=== PATIENT | female | born 1990 | race Caucasian/White ===

== ENCOUNTER 2019-03-09 11:08 | Inpatient (IN) | payer MEDICAID ==
[~2019-03-09] VITALS: Ht 149.9 cm; Wt 70.3 kg
[2019-03-09 11:08] VITALS: BP_SYST 127
--- NOTE | 2019-03-09 11:08 | NUR ---
BROUGHT IMMEDIATELY BACK TO BED #5 AND TRIAGED. REPORT GIVEN TO JULIÁN
--- NOTE | 2019-03-09 11:11 | NUR ---
Pt AAOx4 ambulated into ED referred from urgent care for 3/10 chest pain, palpitations, weakness, and dizzines. Pt states EKG done at urgent care was abnormal. Denies n/v/d/dysuria/sob. No other injuries/complaints per pt/noted.
--- NOTE | 2019-03-09 11:17 | NUR ---
DR JARA AT BEDSIDE FOR EVALUATION
[2019-03-09] MEDS ORDERED: DIGOXIN 0.5 MG/2 ML AMP IVP ONE (11:30)
[2019-03-09] MEDS ORDERED: ASPIRIN 325 MG TABLET PO ONE (11:30)
[2019-03-09 11:51] LABS: BASOPHILS % (AUTO) 0.4 % (0.0-2.0); EOSINOPHILS # (AUTO) 0.1 K/uL (0.0-0.4); EOSINOPHILS % (AUTO) 0.6 % (0.0-4.0); HEMOGLOBIN 13.5 g/dL (12.0-16.0); LYMPHOCYTES # (AUTO) 2.6 K/uL (1.0-5.5); LYMPHOCYTES % (AUTO) 27.9 % (20.5-51.5); MEAN CORPUSCULAR HEMOGLOBIN 32 pg (27-31); MEAN CORPUSCULAR HGB CONC 34 % (32-36); MEAN CORPUSCULAR VOLUME 94 fL (79.0-98.0); MONOCYTES # (AUTO) 0.6 K/uL (0.0-1.0); MONOCYTES % (AUTO) 6.8 % (1.7-9.3); NEUTROPHILS # (AUTO) 6.1 K/uL (1.8-7.7); NEUTROPHILS % (AUTO) 64.3 % (40.0-70.0); PLATELET COUNT (AUTO) 188 K/uL (130-430); RED BLOOD CELL COUNT(AUTO) 4.24 MIL/uL (4.2-6.2); RED CELL DISTRIBUTION WIDTH 12.9 % (9.0-15.0); WHITE BLOOD COUNT (AUTO) 9.5 K/uL (4.8-10.8)
[2019-03-09 11:58] LABS: ANION GAP 11 (5-15); CALCIUM 8.7 mg/dL (8.4-11.0); CHLORIDE 106 mmol/L (98-107); CREATININE 1.12 mg/dL (0.55-1.30); GLUCOSE 94 mg/dL (70-99); SODIUM SERUM 139 mmol/L (136-145); UREA NITROGEN, BLOOD 16 mg/dL (8-21)
[2019-03-09 12:01] LABS: GFR AFRICAN AMERICAN 75 mL/min (>90); PROTHROMBIN TIME 10.4 SECS (9.5-12.5)
[2019-03-09 12:13] LABS: ALANINE AMINOTRANSFERASE 31 U/L (12-78); ALBUMIN 3.5 g/dL (3.4-4.8); ASPARTATE AMINOTRANSFERASE 21 U/L (10-37); FREE T4 (FREE THYROXINE) 1.2 ng/dl (0.8-1.5); THYROID STIMULATING HORMONE 3.69 uIu/mL (0.36-3.74); TOTAL BILIRUBIN 0.9 mg/dL (0.0-1.0)
[2019-03-09 12:19] LABS: ALCOHOL, BLOOD < 3 mg/dL (<10)
[2019-03-09] MEDS ORDERED: MAGNESIUM SULFATE 4 GM in D5W 250 ML IV ONE (12:30)
[2019-03-09] MEDS ORDERED: MAGNESIUM SULFATE 1 GM/2 ML VIAL ONE (12:41)
--- NOTE | 2019-03-09 12:55 | NUR ---
Medication reconciliation completed with information provided by PATIENT. Any prior medication reconciliation on file was reviewed and corrected.
--- NOTE | 2019-03-09 12:59 | NUR ---
SPOKE TO PATIENT ABOUT END OF LIFE CARE. PATIENT STATES SHE IS FULL CODE.
--- NOTE | 2019-03-09 13:05 | NUR ---
Patient will be admitted to care of DR HARTLEY. Admitted to TELE unit. Will go to room 107A. Belongings list completed. Summary report printed. Report will be given at bedside.
[2019-03-09 13:24] LABS: BILIRUBIN,URINE NEGATIVE (NEGATIVE); BLOOD, URINE NEGATIVE (NEGATIVE); CLARITY/URINE CLEAR (CLEAR); COLOR,URINE YELLOW (YELLOW); GLUCOSE,URINE NEGATIVE (NEGATIVE); KETONES,URINE NEGATIVE (NEGATIVE); LEUKOCYTE ESTERASE ,URINE 1+ (NEGATIVE); NITRITE, URINE NEGATIVE (NEGATIVE); PH,URINE 5.5 (5.0-8.0); PROTEIN URINE NEGATIVE (NEGATIVE); UROBILINOGEN,URINE 0.2 (0.2-1.0)
[2019-03-09 13:26] LABS: BARBITURATE, URINE NEGATIVE (NEG <=200); BENZODIAZEPINE, URINE NEGATIVE (NEG <=150); CANNABINOID, URINE NEGATIVE (NEG <=50); COCAINE, URINE NEGATIVE (NEG <=150); METHAMPHETAMINES SCREEN,URINE NEGATIVE (NEG <=500); OPIATE, URINE NEGATIVE (NEG <=100); URINE AMPHETAMINE NEGATIVE (NEG <=500); URINE METHADONE NEGATIVE (NEG <=200)
[2019-03-09 13:27] LABS: PHENCYCLIDINE SCREEN,URINE NEGATIVE (NEG <=25); UR TRICYCLIC ANTIDEPRESSANTS NEGATIVE (NEG <=300); URINE OXYCODONE SCREEN NEGATIVE (NEG <=100); URINE PROPOXYPHENE SCREEN NEGATIVE (NEG <=300)
[2019-03-09 13:30] LABS: BACTERIA,URINE MODERATE /HPF (None Seen); MUCUS,URINE 1+ /LPF (None Seen); RBC,URINE 0-3 /HPF (0-3)
--- NOTE | 2019-03-09 13:33 | NUR ---
LAB AT BEDSIDE DRAWING BLOOD.
--- NOTE | 2019-03-09 13:40 | NUR ---
Transfer to TELE via ACLS protocol. Licensed nurse present. IV present no signs or symptoms of infiltration.
--- NOTE | 2019-03-09 13:41 | NUR ---
ADMISSION NOTE Received patient from ER via gurney. Patient admitted with diagnosis of new onset AFIB. Patient is awake, alert, oriented X 4. Patient oriented to hospital room, call light, toileting, pain management and safety-teach back done. Patient informed that Dennise will be RN and that their room number is 107B. Personal belongings checked and Belongings List documented. Call light within reach.
[2019-03-09 13:45] VITALS: BP_SYST 115
--- NOTE | 2019-03-09 13:45 | NUR ---
REPORT GIVEN TO LUIS JOHNSON ON TELE AT BEDSIDE.
--- NOTE | 2019-03-09 13:45 | NUR ---
Note Pt came from ED - pt ambulated to bed from [facility] with steady gait. Tele unit applied and IV in right AC intact and patent. Pt oriented to room and nursing routines and procedures. Pt oriented to call light and questions/concerns were answered at this time.
--- NOTE | 2019-03-09 13:48 | NUR ---
CONSULTATION PAGED REASON FOR CONSULTATION:NEW ONSET A-FIB WAS CONSULT CALLED?Y PERSON WHO WAS NOTIFIED:KEV CONSULTING PHYSICIAN:RICA WINCHESTER AGRICULTURAL AND FORESTRY SUPERVISOR SPECIALTY:CARDIO AGRICULTURAL AND FORESTRY SUPERVISOR PHONE NUMBER:[phone] [facility]IC[facility]
--- NOTE | 2019-03-09 13:50 | NUR ---
Note Report given to Teresa JOHNSON for continuation of care.
--- NOTE | 2019-03-09 13:50 | NUR ---
NOTE PATIENT AWAKE IN BED. A/OX4. ABLE TO MAKE NEEDS KNOWN. DENIES ANY PAIN. ORIENTED TO ROOM AND BED. ROOM AIR. NO ACUTE DISTRESS. NO SOB. RESPIRATION EVEN AND UNLABORED. SKIN WARM AND DRY TO TOUCH. IV INTACT AND PATENT; NO REDNESS/INFILTRATION NOTED. DISCUSSED PLAN OF CARE WITH PATIENT. BED IN LOW AND LOCKED POSITION. SIDERAIL UPX2. ALL NEEDS MET. CALL LIGHT IN REACH. CONT TO MONITOR
[2019-03-09 13:55] VITALS: BP_SYST 115
[2019-03-09] MEDS ORDERED: POTASSIUM CHLORIDE 20 MEQ TAB.PRT.SR PO PRN (14:00)
[2019-03-09] MEDS ORDERED: LORazepam 2 MG/ML VIAL IVP PRN (14:00)
[2019-03-09] MEDS ORDERED: ONDANSETRON HCL 4 MG/2 ML VIAL IVP PRN (14:00)
[2019-03-09] MEDS ORDERED: MAGNESIUM SULFATE 50 ML IV PRN (14:00)
[2019-03-09] MEDS ORDERED: MORPHINE 2 MG/ML INJ. SYRINGE IVP PRN (14:00)
[2019-03-09] MEDS ORDERED: MUPIROCIN 2% TOPICAL OINTMENT 22 GM NS PRN (14:00)
[2019-03-09] MEDS ORDERED: ZOLPIDEM TARTRATE 5 MG TABLET PO PRN (14:00)
[2019-03-09] MEDS ORDERED: DOCUSATE SODIUM 100 MG CAPSULE PO PRN (14:00)
[2019-03-09] MEDS: cefTRIAXone 1 GM in D5W 50 ML IV SCH (15:11)
[2019-03-09] MEDS: NACL 0.9% 1,000 ML IV SCH (15:11)
--- NOTE | 2019-03-09 15:15 | NUR ---
ATB/IVF ADMINISTERED IV ROCEPHIN AND IVF NS@90CC/HR ORDERED; OCTAVIA WELL WITH NO S/SX ASE NOTED. ALL NEEDS MET. CALL LIGHT IN REACH. CONT TO MONITOR
[2019-03-09 16:00] VITALS: BP_SYST 121
--- NOTE | 2019-03-09 17:00 | NUR ---
NOTE ROUNDS. PATIENT SITTING UP IN BED WATCHING TV. VS STABLE. DENIES ANY PAIN. ALL NEEDS MET. CALL LIGHT IN REACH. CONT TO MONITOR
--- NOTE | 2019-03-09 18:15 | NUR ---
SEEN AND EXAMINED BY AT BEDSIDE
--- NOTE | 2019-03-09 18:49 | NUR ---
CLOSING NOTE PATIENT SITTING UP IN BED WATCHING TV. STABLE. DENIES ANY PAIN. NO ACUTE DISTRESS. NO SOB. RESPIRATION EVEN AND UNLABORED. SKIN WARM AND DRY TO TOUCH. IV INTACT AND PATENT WITH NO REDNESS/INFILTRATION NOTED; OCTAVIA IVF ORDERED. BED IN LOW AND LOCKED POSITION. SIDERAIL UPX2. CALL LIGHT IN REACH. ALL NEEDS MET. CONT TO MONITOR. WILL ENDORSE TO ONCOMING SHIFT
--- NOTE | 2019-03-09 19:07 | NUR ---
Opening Note Received patient awake, AOx4, resting in bed, watching t.v. No sign of distress noted. She finished her meal, ate 80% of dinner. IVF infusing at 90 ml/hr via IV on RAC. Bed is locked to lowest position, refused bed alarm - states ambulates steady. Was instructed on used of call light and demonstrated use. Updated board and reviewed plan of care.
[2019-03-09] MEDS ORDERED: AMIODARONE HCL 200 MG TABLET PO ONE (19:45)
[2019-03-09 20:00] VITALS: BP_SYST 114
[2019-03-09] MEDS: ACETAMINOPHEN 325 MG TABLET PO PRN (20:48)
--- NOTE | 2019-03-09 20:56 | NUR ---
Medications Due medication, Amiodarone given as ordered. Patient reporting a headache and was given Tylenol as ordered for headache. Educated on side effects and she verbalized understanding. She requested an extra blanket and it was provided. No further needs. Will monitor.
[2019-03-09] MEDS: MORPHINE 2 MG/ML INJ. SYRINGE IVP PRN (23:55)
--- NOTE | 2019-03-10 00:08 | NUR ---
C/O Chest pain Patient reporting chest pain 4/10; administered Morphine 1mg as ordered for moderate pain. Educated on side effects, she verbalized understanding.
[2019-03-10 00:51] VITALS: BP_SYST 110
[2019-03-10] MEDS: ACETAMINOPHEN 325 MG TABLET PO PRN ×2 (02:11→13:19)
--- NOTE | 2019-03-10 02:11 | NUR ---
c/o Headache Patient reported headache and administered Tylenol for headache as ordered. Will monitor.
[2019-03-10] MEDS: NACL 0.9% 1,000 ML IV SCH ×2 (02:12→13:18)
--- NOTE | 2019-03-10 02:12 | NUR ---
IVF IVF fluid empty; replaced with new bag. Infusing as ordered- 90ml/hr, patient tolerating. Will monitor.
--- NOTE | 2019-03-10 03:20 | NUR ---
Rounds Patient resting, with door closed and lights out. Eyes closed and easily aroused. She reports headache is gone and denies chest pain, denies SOB. Will continue to monitor.
[2019-03-10 05:20] VITALS: BP_SYST 113
[2019-03-10] MEDS: AMIODARONE HCL 200 MG TABLET PO SCH ×3 (05:29→22:05)
--- NOTE | 2019-03-10 05:32 | NUR ---
EKG I accompanied RT at bedside for EKG. Patient cooperative.
--- NOTE | 2019-03-10 05:34 | NUR ---
Medication Due medication, Amiodarone given as ordered. B/P 113/71, HR 67. Presently denies pain or SOB.
[2019-03-10 06:04] LABS: BASOPHILS % (AUTO) 0.4 % (0.0-2.0); EOSINOPHILS # (AUTO) 0.1 K/uL (0.0-0.4); EOSINOPHILS % (AUTO) 1.4 % (0.0-4.0); HEMATOCRIT 40.1 % (36-48); HEMOGLOBIN 13.2 g/dL (12.0-16.0); LYMPHOCYTES # (AUTO) 3.8 K/uL (1.0-5.5); LYMPHOCYTES % (AUTO) 46.7 % (20.5-51.5); MEAN CORPUSCULAR HEMOGLOBIN 31 pg (27-31); MEAN CORPUSCULAR HGB CONC 33 % (32-36); MEAN CORPUSCULAR VOLUME 95 fL (79.0-98.0); MONOCYTES # (AUTO) 0.6 K/uL (0.0-1.0); MONOCYTES % (AUTO) 7.2 % (1.7-9.3); NEUTROPHILS # (AUTO) 3.6 K/uL (1.8-7.7); NEUTROPHILS % (AUTO) 44.3 % (40.0-70.0); PLATELET COUNT (AUTO) 197 K/uL (130-430); RED BLOOD CELL COUNT(AUTO) 4.24 MIL/uL (4.2-6.2); RED CELL DISTRIBUTION WIDTH 13.4 % (9.0-15.0); WHITE BLOOD COUNT (AUTO) 8.1 K/uL (4.8-10.8)
[2019-03-10 06:39] LABS: CALCIUM 7.7 mg/dL (8.4-11.0); CREATININE 1.02 mg/dL (0.55-1.30); POTASSIUM 4.3 mmol/L (3.5-5.1); TOTAL BILIRUBIN 0.8 mg/dL (0.0-1.0)
--- NOTE | 2019-03-10 06:51 | NUR ---
CLOSING NOTE Patient resting in comfortable position, no sign/symptom of distress. Non-labored breathing on room air. Presently denies chest pain or headache. Needs met throughout shift, will endorse care to oncoming nurse.
--- NOTE | 2019-03-10 07:30 | NUR ---
AM rounds: Oriented x4. Claims minimal substernal constant non radiating pain. No shortness of breath, no palpitations. 12 lead EKG was done this am. Call light within reach. IV fluids of normal saline at 90 cc/hr on the right AC gauge 18, intact, patent.
[2019-03-10 07:54] VITALS: BP_SYST 109
[2019-03-10] MEDS: ENOXAPARIN SODIUM 40 MG/0.4 ML SYRINGE SUBCUT SCH (09:09)
[2019-03-10] MEDS: cefTRIAXone 1 GM in D5W 50 ML IV SCH (09:09)
--- NOTE | 2019-03-10 09:10 | NUR ---
MD rounds; Seen by Dr. Urban and Dr. Pacheco, patient is aware of her plan of care and verbalized understanding.
[2019-03-10 12:31] VITALS: BP_SYST 96
--- NOTE | 2019-03-10 13:30 | NUR ---
Medication: Medicated with tylenol for headache. Denies chest pain.
--- NOTE | 2019-03-10 14:23 | NUR ---
Rounds: Patient is asleep. Medical rep will call back later.
[2019-03-10 16:18] VITALS: BP_SYST 109
--- NOTE | 2019-03-10 18:43 | NUR ---
end of shift: Needs attended, no change in assessment. Denies chest pain.
[2019-03-10 19:20] VITALS: BP_SYST 102
--- NOTE | 2019-03-10 19:20 | NUR ---
INITIAL NOTES; PT IS ALERT AND ORIENTED C/O MILD CHEST DISCOMFORT ; VITALS ARE STABLE ; ASSESSMENT DONE ; WILL CONTINUE TO MONITOR PT ; BED IN LOW AND LOCKS POSITION , CALL BR[place]FORD IN REACH ; PT REFUSED BED ALARM ; MOTHER AT BEDSIDE . WILL MONITOR FOR CHEST PAIN
--- NOTE | 2019-03-10 20:00 | NUR ---
RN NOTES; PT DENIED ANY CHEST DISCOMFORT OR SOB AT THIS TIME , PT IS AFLUTTER ON THE MONITOR ; VITALS ARE STABLE ;WILL CONTINUE TO MONITOR PT .
[2019-03-10] MEDS: MORPHINE 2 MG/ML INJ. SYRINGE IVP PRN (22:08)
--- NOTE | 2019-03-10 22:10 | NUR ---
MEDICATION; DUE MEDS GIVEN ,PT C/O PAIN TO HER R HEAD AND RADIATING TO HER JAW ; MEDICATED WITH MORPHINE 1 MG PER ORDER ; PT STATED SHE IS CONSTIPATED ; MEDICATED WITH COLACE PER ORDER . WILL CONTINUE TO MONITOR PT .
--- NOTE | 2019-03-11 00:10 | NUR ---
RN NOTES: PT IS SLEEPING , COMFORTABLE , NOT IN ANY ACUTE DISTRESS; WILL CONTINUE TO MONITOR PT
[2019-03-11] MEDS: NACL 0.9% 1,000 ML IV SCH (00:23)
[2019-03-11 01:00] VITALS: BP_SYST 107
--- NOTE | 2019-03-11 02:00 | NUR ---
RN ROUNDS; PT IS SLEEPING , RESPIRATION IS EVEN AND NON LABORED ; IV FLUID IS INFUSING WELL ;WILL CONTINUE TO MONITOR PT .
--- NOTE | 2019-03-11 04:20 | NUR ---
RN ROUNDS; PT IS SLEEPING , RESPIRATION IS EVEN AND NON LABORED ; IV FLUID IS INFUSING WELL ;NOT IN ANY ACUTE DISTRESS;WILL CONTINUE TO MONITOR PT .
[2019-03-11 05:34] VITALS: BP_SYST 108
[2019-03-11] MEDS: AMIODARONE HCL 200 MG TABLET PO SCH (05:36)
--- NOTE | 2019-03-11 05:37 | NUR ---
MEDICATION: DUE MEDICATION GIVEN PER ORDER , PT IS COMFORTABLE ; PT STATED SHE STILL HAS 1/10 PAIN TO HER R HEAD .PAIN IS TOLERABLE PER PT . WILL CONTINUE TO MONITOR PT .
--- NOTE | 2019-03-11 07:03 | NUR ---
CLOSING NOTES; PT IS COMFORTABLE , SLEEPING , RESPIRATION IS EVEN AND NON LABORED ;NO C/O ANY CHEST PAIN ; PT IS STILL A FLUTTER ON THE MONITOR ;IV FLUID IS INFUSING WELL , NO S/S OF ANY INFILTRATION NOTED ; ALL NEEDS MET ; WILL CONTINUE TO MONITOR AND WILL ENDORSE TO NEXT SHIFT NURSE .
[2019-03-11 08:00] VITALS: BP_SYST 116
--- NOTE | 2019-03-11 08:00 | NUR ---
ASSUMPTION OF CARE: RECEIVED PT A/A/OX4, DX: INADEQUATE PERFUSION R/T NEW ONSET A-FIB, VSS, A-FLUTTER ON TELE MONITOR, NO DISTRESS NOTED AT THIS TIME, PULSES PALPABLE, SKIN WARM, DRY, TO TOUCH, IV SITE INTACT, PATENT, NO REDNESS OR SWELLING, ORIENTED TO UNIT, CALL LIGHT PLACED WITHIN REACH, WILL CON'T TO MONITOR AND ASSESS.
[2019-03-11] MEDS: cefTRIAXone 1 GM in D5W 50 ML IV SCH (08:37)
[2019-03-11] MEDS: ENOXAPARIN SODIUM 40 MG/0.4 ML SYRINGE SUBCUT SCH (08:38)
--- NOTE | 2019-03-11 09:00 | NUR ---
MEDICAL/SURGERY REGISTERED NURSE: MORNING MEDS GIVEN, PER ORDERED BY Michelle, TOLERATED WELL, WILL CON'T WITH PLAN OF CARE.
--- NOTE | 2019-03-11 09:00 | NUR ---
VISIT: AT BEDSIDE FOR ASSESSMENT OF PT, DISCUSSED POC, PT VERBALIZES UNDERSTANDING, NEW ORDERS GIVEN, WILL CON'T TO MONITOR AND ASSESS.
[2019-03-11] MEDS ORDERED: RIVAROXABAN 10 MG TABLET PO STA (09:25)
--- NOTE | 2019-03-11 09:30 | NUR ---
VISIT: AT BEDSIDE FOR ASSESSMENT OF PT, DISCUSSED POC, PT VERBALIZES UNDERSTANDING, NEW ORDERS GIVEN, WILL CON'T TO MONITOR AND ASSESS.
--- NOTE | 2019-03-11 10:30 | NUR ---
DC Planning: S/w with pt about transferring to [place] for Cardioversion procedure. The pt. stated dr. Hernandez the demonstrator sales already explained to her. She aware of being transfer to another and agreed with the transfer. The pt aware that the procedure is scheduled at 1430 pm today.
[2019-03-11] MEDS ORDERED: RIVAROXABAN 10 MG TABLET PO ONE (11:00)
[2019-03-11 11:09] VITALS: BP_SYST 110
--- NOTE | 2019-03-11 11:39 | NUR ---
DC Planning: late entry: transfer to [facility] for Cardioversion and GEORGI under dr. Andujar. >> 9:14 am : faxed FS and order to admitting # [phone], tel # . >> 10:30 am: s/w Emily at [facility]: the pt is accepted but no bed assigned yet. CM s/w maría magaña/[facility]: no bed at this time she will call back when has one available. Dr. Hernandez made aware. Addendum: 03/11/19 at 1157 by Emily Clarke RN >> Booked ALS with Jah /dispatcher at [facility] # [phone] , pick up operator time at 1300. Addendum: 03/11/19 at 1433 by Emily Clarke RN late entry: 1230 Per CN/Olivia : received bed assignment at [facility] room # 264-B and the ambulance pick up operator time at 1300 -- ALEX Diaz made aware.
--- NOTE | 2019-03-11 12:30 | NUR ---
ENDORSEMENT: [facility], GAVE TELEPHONE REORT TO NURSE CÉSAR RN, PT APPEARS STABLE, A-FLUTTER ON TELE MONITOR, WILL GO BY [facility]SPORT, VSS, ALL BELONGINGS RETURNED TO PT, IV ACCESS REMAINS IN PLACED, WRAPPED WITH BAUZE BANDAGE, WILL CON'T WITH PLAN OF CARE.
[2019-03-11 12:54] VITALS: BP_SYST 111
--- NOTE | 2019-03-11 17:28 | NUR ---
Pt returning back to [facility]: CM received call from dr. Hernandez requesting transferring the pt back. Per the md, Dr. Plaza was unable to perform cardioversion due to abnormal EEG. The pt. will require anticoagulant treatment for weeks then f/u with dr. Urban for further intervention. Cm notified with dr. Pacheco of the above, then he agreed to accept the pt back after spoke with dr. Hernandez. HÉCTOR Jackson made aware . The pt was assigned to room 107B per CN. Olivia
[2019-03-11] MEDS ORDERED: AMI200 PO (19:39)
[2019-03-11] MEDS ORDERED: APIX5TAB4 PO (19:39)
== END 2019-03-11 13:15 | disposition short-term general hospital (02) | DRG 201 ==
LOC: SED 11:08 → STU 12:58
PROVIDERS: ADMIT General Practice; ATTEND General Practice
DX: I48.0 Paroxysmal atrial fibrillation (principal); K72.90 Hepatic failure, unspecified without coma; N39.0 Urinary tract infection, site not specified
CPT/HCPCS: 36415; 71045; 80053; 80307; 81000-TC; 82140-TC; 83605; 83880; 84439; 84443-TC; 84484; 85025; 85379; 85610-TC; 87040-TC; 87086; 93005; 93306; 96365; 96375; 99285; G0378; G0482; J0696; J1160; J1650; J2270; J3475; J7030; J7060

== ENCOUNTER 2019-03-11 18:00 | Observation (INO) | payer MEDICAID ==
[~2019-03-11] VITALS: Ht 149.9 cm; Wt 70.3 kg
[2019-03-11] MEDS ORDERED: AMI200 PO (19:39)
[2019-03-11] MEDS ORDERED: APIX5TAB4 PO (19:39)
[2019-03-11 19:45] VITALS: BP_SYST 98
[2019-03-11 19:49] VITALS: BP_SYST 98
[2019-03-11 20:11] VITALS: BP_SYST 113
--- NOTE | 2019-03-11 21:08 | NUR ---
discharge: pt is awake, alert,oriented x 4. no pain, stable. vital signa re with normal limit. no skin issue. discuss to pt her discharge instruction. pt verbalized understanding. id band and iv lock remove, bleeding is control from iv site. all belongings are with the pt and including prescription.
== END 2019-03-11 20:48 | disposition home or self-care (01) ==
LOC: STU 18:00
PROVIDERS: ADMIT General Practice; ATTEND General Practice
DX: I48.91 Unspecified atrial fibrillation (principal)
CPT/HCPCS: 87081; G0378